=== PATIENT | male | born 1935 | race African-American/Black ===

== ENCOUNTER 2025-04-14 22:28 | Emergency (ER) | payer BC ==
[2025-04-15 00:07] LABS: #Basophils 0.04 10x3/uL (0.0-0.2); #Eosinophils 0.22 10x3/uL (0.0-0.5); #Monocytes 1.21 10x3/uL (0.0-1.1); #Neutrophils 5.52 10x3/uL (1.5-8.4); %Basophils 0.4 % (0.0-2.0); %Eosinophils 2.4 % (0.0-6.0); %Lymphocytes 23.2 % (18.0-47.0); %Monocytes 13.2 % (0.0-10.0); %Neutrophils 60.4 % (40.0-75.0); Hematocrit 34.7 % (38.8-50.0); Hemoglobin 11.3 g/dL (13.5-17.5); Mean Corpuscular Hemoglobin 28.5 pg (27.0-33.0); Mean Corpuscular Volume 87.6 fL (81.2-95.1); Platelet Count 225 10x3/uL (150-450); Red Blood Cell (RBC) Count 3.96 10x6/uL (4.32-5.72); White Blood Cell (WBC) Count 9.15 10x3/uL (3.5-10.5)
[2025-04-15 00:21] LABS: ALT (SGPT) 23 U/L (Less than 45); AST (SGOT) 21 U/L (11-34); Albumin 3.3 g/dL (3.1-4.5); Alkaline Phosphatase 105 U/L (40-110); Anion Gap 14 mmol/L (10-20); BUN (Urea Nitrogen) 37 mg/dL (8.4-25.7); Bilirubin, Total 0.5 mg/dL (0.3-1.2); Calc. Creatinine Clearance 0 mL/min (70-130); Calcium 9.7 mg/dL (7.8-10.44); Carbon Dioxide 28 mmol/L (23-31); Chloride 103 mmol/L (98-107); Globulin 4.2 g/dL (2.4-3.5); Glucose 122 mg/dL (83-110); Potassium 3.6 mmol/L (3.5-5.1); Sodium 141 mmol/L (136-145)
[2025-04-15 00:55] LABS: Troponin I 0.032 ng/mL (< 0.028)
== END 2025-04-15 02:10 | disposition home or self-care (01) ==
LOC: CSHERS 22:28
DX: S80.812A Abrasion, left lower leg, initial encounter (principal); L03.116 Cellulitis of left lower limb; R60.0 Localized edema; I11.0 Hypertensive heart disease with heart failure; I50.9 Heart failure, unspecified
CPT/HCPCS: 36415; 71046; 80053; 83880; 84484; 85025; 93005; 93970